=== PATIENT | female | born 1980 | race Caucasian/White ===

== ENCOUNTER 2017-11-08 18:31 | Emergency (ER) | payer MEDICAID ==
[2017-11-08 22:29] LABS: ADD UMIC NO; UR ASCORBIC ACID NEGATIVE (NEGATIVE); UR BILIRUBIN (Dip) NEGATIVE (NEGATIVE); UR BLOOD (Dip) NEGATIVE (NEGATIVE); UR CLARITY CLEAR (CLEAR); UR COLOR YELLOW (YELLOW); UR GLUCOSE (Dip) NEGATIVE (NEGATIVE); UR KETONES (Dip) 1+ mg/dL (NEGATIVE); UR LEUKOCYTE ESTERASE (Dip) NEGATIVE Leu/ul (NEGATIVE); UR NITRITE (Dip) NEGATIVE (NEGATIVE); UR SPECIFIC GRAVITY (Dip) 1.011 (1.003-1.030); UR TOTAL PROTEIN (Dip) NEGATIVE (NEGATIVE); UR UROBILINOGEN (Dip) NEGATIVE (NEGATIVE)
== END 2017-11-08 22:56 | disposition home or self-care (01) ==
LOC: FTE 18:31
DX: N93.8 Other specified abnormal uterine and vaginal bleeding (principal); R10.2 Pelvic and perineal pain
CPT/HCPCS: 81003; 99283

== ENCOUNTER 2018-06-21 12:40 | Inpatient (IN) | payer MEDICAID ==
[2018-06-21] MEDS ORDERED: MISOPROSTOL 200 MCG TAB PR (13:30)
[2018-06-21] MEDS ORDERED: CARBOPROST 250 MCG INJ IM (13:30)
[2018-06-21] MEDS ORDERED: METHYLERGONOVINE 0.2 MG INJ IM (13:30)
[2018-06-21] MEDS ORDERED: OXYTOCIN 30 UNITS/LR 500 ML IV ×2 (13:30)
[2018-06-21] MEDS ORDERED: LIDOCAINE 1% (MPF) 30 ML INJ INJ (13:30)
[2018-06-21] MEDS ORDERED: BUTORPHANOL 2 MG INJ IV (13:30)
[2018-06-21] MEDS: LACTATED RINGER'S 1,000 ML IV* (14:50)
[2018-06-21 14:55] LABS: ADD MAN DIFF? NO
[2018-06-21 15:02] LABS: WHITE BLOOD COUNT 8.3 10^3/ul (4.8-10.8)
[2018-06-21 15:02] LABS: BASOPHILS % 0.4 % (0.0-2.0); EOSINOPHILS % 0.5 % (0.0-7.0); HEMOGLOBIN 10.2 g/dl (12.0-16.0); LYMPHOCYTES # 2.1 10^3/ul (0.8-2.9); LYMPHOCYTES % 25.6 % (15.0-51.0); MEAN CORPUSCULAR HEMOGLOBIN 25.7 pg (29.0-33.0); MEAN CORPUSCULAR HGB CONC 31.9 g/dl (32.0-37.0); MEAN CORPUSCULAR VOLUME 80.6 fl (82.0-101.0); MEAN PLATELET VOLUME 10.4 fl (7.4-10.4); MONOCYTE # 0.5 10^3/ul (0.3-0.9); MONOCYTES % 5.4 % (0.0-11.0); NEUTROPHIL # 5.6 10^3/ul (1.6-7.5); NEUTROPHILS % 67.3 % (39.0-77.0); PLATELET COUNT 322 10^3/UL (140-415); RED BLOOD COUNT 3.97 10^6/ul (4.20-5.40); RED CELL DISTRIBUTION WIDTH 15.9 % (11.5-14.5)
[2018-06-21 15:24] LABS: INR 0.88; PT RATIO 0.9
[2018-06-21 15:25] LABS: PARTIAL THROMBOPLASTIN TIME 25.6 Sec (25.0-35.0)
[2018-06-21 15:51] LABS: HEPATITIS B SURFACE ANTIGEN NEGATIVE (NEGATIVE)
[2018-06-21] MEDS: OXYTOCIN 30 UNITS/LR 500 ML IVPB (15:56)
[2018-06-21] MEDS: AMPICILLIN 2 GM/NS (PMX) 100 ML IVPB (15:56)
[2018-06-21 17:10] LABS: GLUCOSE 85 mg/dl (70-220)
[2018-06-21] MEDS: DEXTROSE 5%-LR 1,000 ML IV (18:53)
[2018-06-21] MEDS: AMPICILLIN 1 GM/NS (PMX) 50 ML IVPB (19:48)
[2018-06-21 22:11] LABS: RAPID PLASMA REAGIN NONREACTIVE (NR)
[2018-06-22] MEDS: AMPICILLIN 1 GM/NS (PMX) 50 ML IVPB ×7 (00:10→21:06)
[2018-06-22] MEDS: DEXTROSE 5%-LR 1,000 ML IV (06:17)
[2018-06-22] MEDS: OXYTOCIN 30 UNITS/LR 500 ML IV (09:18)
[2018-06-22] MEDS: LACTATED RINGER'S 1,000 ML IV* ×4 (10:23→22:41)
[2018-06-22] MEDS ORDERED: FENTAnyl 2MCG/ML-ROPIV 0.2% 100 ML (16:13)
[2018-06-22] MEDS ORDERED: NALOXONE (0.4 MG/ML) INJ IV (16:30)
[2018-06-22] MEDS ORDERED: KETOROLAC 30 MG INJ IV (16:30)
[2018-06-22] MEDS ORDERED: DIPHENHYDRAMINE 50 MG INJ IV (16:30)
[2018-06-22] MEDS ORDERED: HYDROmorphONE 0.5 MG/0.5 ML SYG IV ×2 (16:30)
[2018-06-22] MEDS ORDERED: ONDANSETRON 4 MG INJ IV (16:30)
[2018-06-23] MEDS: AMPICILLIN 1 GM/NS (PMX) 50 ML IVPB ×3 (01:04→08:36)
[2018-06-23] MEDS: FENTAnyl 2MCG/ML-ROPIV 0.2% 100 ML BAG EPI (01:10)
[2018-06-23] MEDS: LACTATED RINGER'S 1,000 ML IV* (03:15)
[2018-06-23] MEDS: OXYTOCIN 30 UNITS/LR 500 ML IV ×8 (07:00→11:56)
[2018-06-23] MEDS: MINERAL OIL LIGHT 10 ML VIAL TOP (07:51)
[2018-06-23] MEDS ORDERED: ONDANSETRON 4 MG INJ IV (12:00)
[2018-06-23] MEDS ORDERED: DIBUCAINE 1% 30 GM OINT PR (12:00)
[2018-06-23] MEDS: IBUPROFEN 600 MG TAB PO ×3 (12:00→23:56)
[2018-06-23] MEDS ORDERED: OXYCODONE/ASPIRIN (4.88/325) TAB PO ×2 (12:00)
[2018-06-23] MEDS ORDERED: ACETAMINOPHEN 325 MG TAB PO (12:00)
[2018-06-23] MEDS ORDERED: HYDROCODONE/APAP (5/325) TAB PO ×2 (12:00)
[2018-06-23] MEDS: WITCH HAZEL/GLYCERIN PAD PR (14:49)
[2018-06-23] MEDS: LANOLIN 7 GM TUBE TOP (14:49)
[2018-06-23] MEDS: BENZOCAINE 20% 56 ML SPRAY TOP (14:50)
[2018-06-23] MEDS: SENNA/DOCUSATE NA (8.6MG/50MG) TAB PO (21:15)
[2018-06-24] MEDS: IBUPROFEN 600 MG TAB PO ×4 (05:34→23:31)
[2018-06-24 07:01] LABS: ADD MAN DIFF? NO
[2018-06-24 07:03] LABS: WHITE BLOOD COUNT 15.9 10^3/ul (4.8-10.8)
[2018-06-24 07:03] LABS: BASOPHILS % 0.2 % (0.0-2.0); EOSINOPHILS # 0.1 10^3/ul (0.0-0.5); EOSINOPHILS % 0.7 % (0.0-7.0); HEMOGLOBIN 9.4 g/dl (12.0-16.0); LYMPHOCYTES # 2.8 10^3/ul (0.8-2.9); LYMPHOCYTES % 17.5 % (15.0-51.0); MEAN CORPUSCULAR HEMOGLOBIN 25.5 pg (29.0-33.0); MEAN CORPUSCULAR HGB CONC 31.3 g/dl (32.0-37.0); MEAN CORPUSCULAR VOLUME 81.5 fl (82.0-101.0); MEAN PLATELET VOLUME 10.7 fl (7.4-10.4); MONOCYTE # 0.7 10^3/ul (0.3-0.9); MONOCYTES % 4.5 % (0.0-11.0); NEUTROPHIL # 12.1 10^3/ul (1.6-7.5); PLATELET COUNT 286 10^3/UL (140-415); RED BLOOD COUNT 3.68 10^6/ul (4.20-5.40); RED CELL DISTRIBUTION WIDTH 16.7 % (11.5-14.5)
[2018-06-24] MEDS: MINERAL OIL LIGHT 10 ML VIAL TOP (07:59)
[2018-06-24] MEDS: SENNA/DOCUSATE NA (8.6MG/50MG) TAB PO ×2 (11:13→21:27)
[2018-06-25] MEDS: IBUPROFEN 600 MG TAB PO ×2 (06:22→11:24)
[2018-06-25] MEDS: MEASLES,MUMPS,RUBELLA VACCINE INJ SC* (09:00)
[2018-06-25] MEDS: SENNA/DOCUSATE NA (8.6MG/50MG) TAB PO (09:22)
== END 2018-06-25 13:20 | disposition home or self-care (01) | DRG 775 ==
LOC: PP1 06-23 11:55 → L-D 12:40
PROVIDERS: Obstetrics & Gynecology
PROC: 10E0XZZ Delivery of Products of Conception, External Approach (ICD-10-PCS; principal; 2018-06-22)
PROC: 0HQ9XZZ Repair Perineum Skin, External Approach (ICD-10-PCS; 2018-06-22)
PROC: 3E033VJ Introduction of Other Hormone into Peripheral Vein, Percutaneous Approach (ICD-10-PCS; 2018-06-22)
DX: O48.0 Post-term pregnancy (principal); Z3A.40 40 weeks gestation of pregnancy; O76 Abnormality in fetal heart rate and rhythm complicating labor and delivery; O70.0 First degree perineal laceration during delivery; O69.81X0 Labor and delivery complicated by cord around neck, without compression, not applicable or unspecified; Z37.0 Single live birth
CPT/HCPCS: 62319; 76815; 82947; 82962; 85025; 85610; 85730; 86592; 86850; 86900; 86901; 87340